=== PATIENT | female | born 1995 | race Caucasian/White ===

== ENCOUNTER 2022-04-14 21:15 | Emergency (ER) | payer OTHER ==
[2022-04-14 22:19] LABS: Absolute Neutrophil Ct (ANC) 3.17 x10^3/uL (1.4-6.9); Basophil (Absolute #) 0.02 x10^3/uL (0-0.4); Eosinophil % 0.2 % (0.00-5.0); Eosinophil (Absolute #) 0.01 x10^3/uL (0-0.5); Hematocrit 37.3 % (35-47); Hemoglobin 12.1 g/dL (12.0-16.0); Lymphocyte (Absolute #) 0.51 x10^3/uL (1.0-4.6); Lymphocytes % 12.5 % (24.0-44.0); Mean Corpuscular Hemoglobin 28.9 pg (26-32); Mean Corpuscular Hgb Concent. 32.4 g/dL (32-36); Mean Platelet Volume 10.8 fL (7.5-11.0); Monocytes % 7.4 % (0.0-12.0); Neutrophil % 77.7 % (36.0-66.0); Platelet Count 225 x10^3/uL (150-450); Red Blood Count 4.19 x10^6/uL (4.1-5.4); Red Cell Distribution Width 12.5 % (11.5-14.0); White Blood Count 4.1 x10^3/uL (4.0-10.5)
--- NOTE | 2022-04-14 22:26 | ERPHSYRPT ---
- History of Present Illness Source: patient Exam Limitations: other (Poor historian) Patient Subjective Stated Complaint: pt states "I started feeling dizzy richard morning and my heart rate was in the 150s at home." Triage Nursing Assessment: Pt presents to ED in wheelchair, pt alert and oriented x3, pt c/o dizziness, headache, tachycardia, low back pain since saturday morning, pt denies flu like symptoms or urinary symptoms, pt is afebrile, pt's heart rate is currently 104, skin pwd Physician History: 26 yo wf cc of tachycardia x 2 days/Global NO today/nausea/mild dyspnea/chest tightness. She denies cough/coryza/fever/diarrhea/dysuria/hematuria. Pt states that she has a h/o MGHA, but pain different. Timing/Duration: other (2 days) Activities at Onset: rest Quality: tightness Location: substernal Chest Pain Radiation: no radiation Severity of Pain-Max: moderate Severity of Pain-Current: moderate Modifying Factors: Improves With: nothing Nitro Today/Relief: no nitro taken today Aspirin Treatment Today: no aspirin today Associated Symptoms: nausea, No vomiting, No abdominal pain Allergies/Adverse Reactions: No Known Drug Allergies Allergy (Verified 04/14/22 21:26) Home Medications: Escitalopram Oxalate [Lexapro] 30 mg PO DAILY 04/14/22 [History] Hx Tetanus, Diphtheria Vaccination/Date Given: Yes Hx Influenza Vaccination/Date Given: No Hx Pneumococcal Vaccination/Date Given: No Immunizations Up to Date: Yes Travel Risk - International Travel Have you traveled outside of the country in past 3 weeks: No - Coronavirus Screening Are you exhibiting any of the following symptoms?: No Close contact with a COVID-19 positive Pt in past 14-21 Days: No - Vaccine Status Have you recieved a Covid-19 vaccination: Yes 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 - Vaccination Dates Date of 2cond Vaccination (if applicable): 2020 - Review of Systems Constitutional: No Symptoms Eyes: No Symptoms Ears, Nose, & Throat: No Symptoms Respiratory: No Symptoms Cardiac: No Symptoms, Chest Pain Abdominal/Gastrointestinal: No Symptoms, Nausea Genitourinary Symptoms: No Symptoms Musculoskeletal: No Symptoms Skin: No Symptoms Neurological: No Symptoms, Headache Psychological: No Symptoms Endocrine: No Symptoms Hematologic/Lymphatic: No Symptoms Immunological/Allergic: No Symptoms - Past Medical History Pertinent Past Medical History: Yes Neurological History: Migraines ENT History: No Pertinent History Cardiac History: No Pertinent History Respiratory History: No Pertinent History Endocrine Medical History: Diabetes Type II Musculoskeletal History: No Pertinent History GI Medical History: No Pertinent History History: No Pertinent History Psycho-Social History: Anxiety, Depression Female Reproductive Disorders: No Pertinent History - Past Surgical History Past Surgical History: Yes Neuro Surgical History: No Pertinent History Cardiac: No Pertinent History Respiratory: No Pertinent History Gastrointestinal: No Pertinent History Genitourinary: No Pertinent History Female Surgical History: Hysterectomy Other Surgical History: nasal surgery - Social History Smoking Status: Never smoker Exposure to second hand smoke: No Drug Use: none Patient Lives Alone: No Significant Family History: no pertinent family hx - Female History Hx Last Menstrual Period: hysterectomy Hx Now: No - Nursing Vital Signs Nursing Vital Signs: Initial Vital Signs Temperature 98.7 F 04/14/22 21:28 Pulse Rate 112 H 04/14/22 21:28 Respiratory Rate 21 04/14/22 21:28 Blood Pressure 116/75 04/14/22 21:28 O2 Sat by Pulse Oximetry 98 04/14/22 21:28 Pain Scale Pain Intensity 7 tachy - Physical Exam General Appearance: no apparent distress Eye Exam: PERRL/EOMI, eyes nml inspection Ears, Nose, Throat Exam: normal ENT inspection, TMs normal, pharynx normal, moist mucous membranes Neck Exam: normal inspection, non-tender, supple, full range of motion, No meningismus, No mass, No Brudzinski, No Kernig's, No carotid bruit Respiratory Exam: normal breath sounds, lungs clear, airway intact Cardiovascular Exam: tachycardia, capillary refill <2 sec, No murmur Gastrointestinal/Abdomen Exam: soft, normal bowel sounds, No tenderness Back Exam: normal inspection, normal range of motion, No CVA tenderness, No vertebral tenderness Extremity Exam: normal inspection, normal range of motion Neurologic Exam: alert, oriented x 3, cooperative, package handler II-XII nml as tested, normal mood/affect, nml cerebellar function, nml station & gait, sensation nml, No motor deficits, No sensory deficit Skin Exam: normal color, warm, dry Lymphatic Exam: No adenopathy SpO2 Interpretation: normal SpO2: 98 O2 Delivery: Room Air - Course Nursing assessment & vital signs reviewed: Yes EKG Interpreted by Me: RATE (Sinus tach/[id number]/Normal QT-QTc/Low voltage/No acute ST changes) - CT Exams Chest CT Interpretation: Tele-radiologist Report (CTA chest neg for PE/AD) Ordered Tests: Active Orders 24 hr Category Date Time Status EKG-ER Only STAT Care 04/14/22 21:49 Active IV Insertion STAT Care 04/14/22 23:24 Active CHEST WITH CONTRAST [CT] Stat Exams 04/15/22 00:12 Taken HEAD WITHOUT CONTRAST [CT] Stat Exams 04/14/22 21:51 Taken CBC W DIFF Stat Lab 04/14/22 22:15 Completed CMP Stat Lab 04/14/22 22:15 Completed D-DIMER QUANTITATIVE Stat Lab 04/14/22 22:00 Completed PROTIME WITH INR Stat Lab 04/14/22 22:15 Completed PTT Stat Lab 04/14/22 22:15 Completed TROPONIN Q3H Lab 04/14/22 22:15 Completed TROPONIN Q3H Lab 04/15/22 00:12 Completed TROPONIN Q3H Lab 04/15/22 04:00 Ordered TROPONIN Q3H Lab 04/15/22 07:00 Ordered TROPONIN Q3H Lab 04/15/22 10:00 Ordered UA W/RFX CULTURE Stat Lab 04/14/22 22:31 Completed Urine Triage Profile Stat Lab 04/14/22 22:31 Completed Medication Summary Discontinued Medications Generic Name Dose Route Start Last Admin Trade Name Rashid PRN Reason Stop Dose Admin Sodium Chloride 1,000 mls @ 999 mls/hr 04/14/22 23:06 04/15/22 00:14 Sodium Chloride 0.9% 1000 Ml IV 04/15/22 00:06 Infused .Q1H1M STA Infusion Sodium Chloride Confirm 04/14/22 23:08 Sodium Chloride 0.9% 1000 Ml Administered 04/14/22 23:09 Dose 1,000 mls @ ud .ROUTE .STK-MED ONE Ketorolac Tromethamine 15 mg 04/14/22 23:06 04/14/22 23:10 Ketorolac Tromethamine 30 Mg/Ml Inj IV 04/14/22 23:07 15 mg STAT ONE Administration Ketorolac Tromethamine Confirm 04/14/22 23:08 Ketorolac Tromethamine 30 Mg/Ml Inj Administered 04/14/22 23:09 Dose 30 mg .ROUTE .STK-MED ONE Lab/Rad Data: Laboratory Result Diagrams 04/14/22 22:15 04/14/22 22:15 Laboratory Results 04/15/22 04/14/22 04/14/22 Range/Units 00:12 22:32 22:31 WBC (4.0-10.5) x10^3/uL RBC (4.1-5.4) x10^6/uL Hgb (12.0-16.0) g/dL Hct (35-47) % MCV (78-100) fL MCH (26-32) pg MCHC (32-36) g/dL RDW (11.5-14.0) % Plt Count (150-450) x10^3/uL MPV (7.5-11.0) fL Gran % (36.0-66.0) % Immature Gran % (Auto) (0.00-0.4) % Nucleat RBC Rel Count (0.00-0.1) % Eos # (Auto) (0-0.5) x10^3/uL Immature Gran # (Auto) (0.00-0.03) x10^3u/L Absolute Lymphs (auto) (1.0-4.6) x10^3/uL Absolute Monos (auto) (0.0-1.3) x10^3/uL Absolute Nucleated RBC (0.00-0.01) x10^3u/L Lymphocytes % (24.0-44.0) % Monocytes % (0.0-12.0) % Eosinophils % (0.00-5.0) % Basophils % (0.0-0.4) % Absolute Granulocytes (1.4-6.9) x10^3/uL Basophils # (0-0.4) x10^3/uL PT (9.4-12.5) SECONDS INR (0.8-3.0) APTT (25.1-36.5) SECONDS D-Dimer (0.0-0.50) mg/L Sodium (137-145) mmol/L Potassium (3.5-5.1) mmol/L Chloride (98-107) mmol/L Carbon Dioxide (22-30) mmol/L Anion Gap (5-15) MEQ/L BUN (7-17) mg/dL Creatinine (0.52-1.04) mg/dL Estimated GFR ML/MIN Glucose (74-106) mg/dL Calcium (8.4-10.2) mg/dL Total Bilirubin (0.2-1.3) mg/dL AST (14-36) U/L ALT (0-35) U/L Alkaline Phosphatase (38-126) U/L Troponin I < 0.012 (0.000-0.034) ng/mL Serum Total Protein (6.3-8.2) g/dL Albumin (3.5-5.0) g/dL Urinalys Dipstick Clnc MAIN LAB Urine Color YELLOW (YELLOW) Urine Appearance CLEAR (CLEAR) Urine pH 7.0 (5-6) Ur Specific [place] 1.020 (1.005-1.025) POC Urine Protein Conf NEGATIVE (Negative) Urine Ketones TRACE (NEGATIVE) Urine Nitrite NEGATIVE (NEGATIVE) Urine Bilirubin NEGATIVE (NEGATIVE) Urine Urobilinogen 1 (0-1) mg/dL Urine Leukocytes NEGATIVE (NEGATIVE) Urine WBC (Auto) 0-2 (0-5) /HPF Urine RBC (Auto) NONE SEEN (0-2) /HPF U Epithel Cells (Auto) RARE (FEW) /HPF Urine Bacteria (Auto) NONE SEEN (NEGATIVE) /HPF Urine RBC NEGATIVE (0-5) Quintin/ul Urine Mucus (Auto) SLIGHT (NEGATIVE) /HPF Ur Culture Indicated? NO Urine Glucose >=1000 (NEGATIVE) mg/dL Urine Opiates Level (NEGATIVE) Ur Methadone (NEGATIVE) Urine Barbiturates (NEGATIVE) Ur Phencyclidine (PCP) (NEGATIVE) Urine Amphetamine (NEGATIVE) U Benzodiazepine Level (NEGATIVE) Urine Cocaine (NEGATIVE) Urine Marijuana (THC) (NEGATIVE) Influenza Type A Ag NEGATIVE (NEGATIVE) Influenza Type B Ag NEGATIVE (NEGATIVE) RSV (PCR) NEGATIVE (Negative) SARS-CoV-2 (PCR) NEGATIVE (NEGATIVE) 04/14/22 04/14/22 04/14/22 Range/Units 22:31 22:15 22:15 WBC (4.0-10.5) x10^3/uL RBC (4.1-5.4) x10^6/uL Hgb (12.0-16.0) g/dL Hct (35-47) % MCV (78-100) fL MCH (26-32) pg MCHC (32-36) g/dL RDW (11.5-14.0) % Plt Count (150-450) x10^3/uL MPV (7.5-11.0) fL Gran % (36.0-66.0) % Immature Gran % (Auto) (0.00-0.4) % Nucleat RBC Rel Count (0.00-0.1) % Eos # (Auto) (0-0.5) x10^3/uL Immature Gran # (Auto) (0.00-0.03) x10^3u/L Absolute Lymphs (auto) (1.0-4.6) x10^3/uL Absolute Monos (auto) (0.0-1.3) x10^3/uL Absolute Nucleated RBC (0.00-0.01) x10^3u/L Lymphocytes % (24.0-44.0) % Monocytes % (0.0-12.0) % Eosinophils % (0.00-5.0) % Basophils % (0.0-0.4) % Absolute Granulocytes (1.4-6.9) x10^3/uL Basophils # (0-0.4) x10^3/uL PT 10.4 (9.4-12.5) SECONDS INR 0.98 (0.8-3.0) APTT 26.5 (25.1-36.5) SECONDS D-Dimer (0.0-0.50) mg/L Sodium (137-145) mmol/L Potassium (3.5-5.1) mmol/L Chloride (98-107) mmol/L Carbon Dioxide (22-30) mmol/L Anion Gap (5-15) MEQ/L BUN (7-17) mg/dL Creatinine (0.52-1.04) mg/dL Estimated GFR ML/MIN Glucose (74-106) mg/dL Calcium (8.4-10.2) mg/dL Total Bilirubin (0.2-1.3) mg/dL AST (14-36) U/L ALT (0-35) U/L Alkaline Phosphatase (38-126) U/L Troponin I < 0.012 (0.000-0.034) ng/mL Serum Total Protein (6.3-8.2) g/dL Albumin (3.5-5.0) g/dL Urinalys Dipstick Clnc Urine Color (YELLOW) Urine Appearance (CLEAR) Urine pH (5-6) Ur Specific [place] (1.005-1.025) POC Urine Protein Conf (Negative) Urine Ketones (NEGATIVE) Urine Nitrite (NEGATIVE) Urine Bilirubin (NEGATIVE) Urine Urobilinogen (0-1) mg/dL Urine Leukocytes (NEGATIVE) Urine WBC (Auto) (0-5) /HPF Urine RBC (Auto) (0-2) /HPF U Epithel Cells (Auto) (FEW) /HPF Urine Bacteria (Auto) (NEGATIVE) /HPF Urine RBC (0-5) Quintin/ul Urine Mucus (Auto) (NEGATIVE) /HPF Ur Culture Indicated? Urine Glucose (NEGATIVE) mg/dL Urine Opiates Level NEGATIVE (NEGATIVE) Ur Methadone NEGATIVE (NEGATIVE) Urine Barbiturates NEGATIVE (NEGATIVE) Ur Phencyclidine (PCP) NEGATIVE (NEGATIVE) Urine Amphetamine NEGATIVE (NEGATIVE) U Benzodiazepine Level NEGATIVE (NEGATIVE) Urine Cocaine NEGATIVE (NEGATIVE) Urine Marijuana (THC) NEGATIVE (NEGATIVE) Influenza Type A Ag (NEGATIVE) Influenza Type B Ag (NEGATIVE) RSV (PCR) (Negative) SARS-CoV-2 (PCR) (NEGATIVE) 04/14/22 04/14/22 04/14/22 Range/Units 22:15 22:15 22:00 WBC 4.1 (4.0-10.5) x10^3/uL RBC 4.19 (4.1-5.4) x10^6/uL Hgb 12.1 (12.0-16.0) g/dL Hct 37.3 (35-47) % MCV 89.0 (78-100) fL MCH 28.9 (26-32) pg MCHC 32.4 (32-36) g/dL RDW 12.5 (11.5-14.0) % Plt Count 225 (150-450) x10^3/uL MPV 10.8 (7.5-11.0) fL Gran % 77.7 H (36.0-66.0) % Immature Gran % (Auto) 1.7 H (0.00-0.4) % Nucleat RBC Rel Count 0.0 (0.00-0.1) % Eos # (Auto) 0.01 (0-0.5) x10^3/uL Immature Gran # (Auto) 0.07 H (0.00-0.03) x10^3u/L Absolute Lymphs (auto) 0.51 L (1.0-4.6) x10^3/uL Absolute Monos (auto) 0.30 (0.0-1.3) x10^3/uL Absolute Nucleated RBC 0.00 (0.00-0.01) x10^3u/L Lymphocytes % 12.5 L (24.0-44.0) % Monocytes % 7.4 (0.0-12.0) % Eosinophils % 0.2 (0.00-5.0) % Basophils % 0.5 (0.0-0.4) % Absolute Granulocytes 3.17 (1.4-6.9) x10^3/uL Basophils # 0.02 (0-0.4) x10^3/uL PT (9.4-12.5) SECONDS INR (0.8-3.0) APTT (25.1-36.5) SECONDS D-Dimer 1.01 H* (0.0-0.50) mg/L Sodium 135 L (137-145) mmol/L Potassium 3.7 (3.5-5.1) mmol/L Chloride 102 (98-107) mmol/L Carbon Dioxide 23 (22-30) mmol/L Anion Gap 13.3 (5-15) MEQ/L BUN 10 (7-17) mg/dL Creatinine 0.66 (0.52-1.04) mg/dL Estimated GFR > 60.0 ML/MIN Glucose 313 H (74-106) mg/dL Calcium 9.0 (8.4-10.2) mg/dL Total Bilirubin 0.30 (0.2-1.3) mg/dL AST 30 (14-36) U/L ALT 23 (0-35) U/L Alkaline Phosphatase 85 (38-126) U/L Troponin I (0.000-0.034) ng/mL Serum Total Protein 6.5 (6.3-8.2) g/dL Albumin 3.7 (3.5-5.0) g/dL Urinalys Dipstick Clnc Urine Color (YELLOW) Urine Appearance (CLEAR) Urine pH (5-6) Ur Specific [place] (1.005-1.025) POC Urine Protein Conf (Negative) Urine Ketones (NEGATIVE) Urine Nitrite (NEGATIVE) Urine Bilirubin (NEGATIVE) Urine Urobilinogen (0-1) mg/dL Urine Leukocytes (NEGATIVE) Urine WBC (Auto) (0-5) /HPF Urine RBC (Auto) (0-2) /HPF U Epithel Cells (Auto) (FEW) /HPF Urine Bacteria (Auto) (NEGATIVE) /HPF Urine RBC (0-5) Quintin/ul Urine Mucus (Auto) (NEGATIVE) /HPF Ur Culture Indicated? Urine Glucose (NEGATIVE) mg/dL Urine Opiates Level (NEGATIVE) Ur Methadone (NEGATIVE) Urine Barbiturates (NEGATIVE) Ur Phencyclidine (PCP) (NEGATIVE) Urine Amphetamine (NEGATIVE) U Benzodiazepine Level (NEGATIVE) Urine Cocaine (NEGATIVE) Urine Marijuana (THC) (NEGATIVE) Influenza Type A Ag (NEGATIVE) Influenza Type B Ag (NEGATIVE) RSV (PCR) (Negative) SARS-CoV-2 (PCR) (NEGATIVE) - Progress Progress: improved Progress Note: 04/15/22 01:58 15mg IV Toradol w decrease in pain 04/15/22 02:01 Pt's tachycardia resolved after Toradol. Counseled pt/family regarding: lab results, diagnosis, need for follow-up, rad results - Departure Departure Disposition: Home Clinical Impression: Headache, Hyperglycemia Condition: Stable Critical Care Time: No Referrals: Sidra Rogers MD [Primary Care Provider] - Follow up/PCP as directed Instructions: Headache, Adult (DC), Tachycardia (DC) Additional Instructions: Follow up with your family MD on Saturday Return to ER for increasing pain/focal weakness/Temperature greater than 100.5
[2022-04-14 22:33] LABS: ALBUMIN 3.7 g/dL (3.5-5.0); ALKALINE PHOSPHATASE 85 U/L (38-126); ANION GAP 13.3 MEQ/L (5-15); BLOOD UREA NITROGEN 10 mg/dL (7-17); CHLORIDE 102 mmol/L (98-107); Carbon Dioxide 23 mmol/L (22-30); Creatinine 1 0.66 mg/dL (0.52-1.04); EST GLOMERULAR FILTRATION RATE > 60.0 ML/MIN; Glucose 313 mg/dL (74-106); Potassium 3.7 mmol/L (3.5-5.1); SGOT/AST 30 U/L (14-36); SGPT/ALT 23 U/L (0-35); SODIUM 135 mmol/L (137-145); Total Protein 6.5 g/dL (6.3-8.2)
[2022-04-14 22:34] LABS: INR 0.98 (0.8-3.0); PROTIME 10.4 SECONDS (9.4-12.5); PTT 26.5 SECONDS (25.1-36.5)
[2022-04-14 22:48] LABS: Epithelial Cells RARE /HPF (FEW); Mucus SLIGHT /HPF (NEGATIVE); WBC 0-2 /HPF (0-5)
[2022-04-14 22:49] LABS: Appearance CLEAR (CLEAR); Bacteria NONE SEEN /HPF (NEGATIVE); Bilirubin NEGATIVE (NEGATIVE); Dipstick done @ ? MAIN LAB; Glucose >=1000 mg/dL (NEGATIVE); Ketones TRACE (NEGATIVE); Nitrite NEGATIVE (NEGATIVE); Protein,Urine Dip NEGATIVE (Negative); RBC NEGATIVE Ery/ul (0-5); RBC NONE SEEN /HPF (0-2); Urine Cultured Indicated? NO; Urobilinogen 1 mg/dL (0-1)
[2022-04-14 22:55] LABS: Amphetamine,Urine NEGATIVE (NEGATIVE); Barbiturate,Urine NEGATIVE (NEGATIVE); Benzodiazepine,Urine NEGATIVE (NEGATIVE); Cocaine,Urine NEGATIVE (NEGATIVE); Methadone,Urine NEGATIVE (NEGATIVE); Opiate,Urine NEGATIVE (NEGATIVE); PCP,Urine NEGATIVE (NEGATIVE); THC,Urine NEGATIVE (NEGATIVE)
[2022-04-14] MEDS ORDERED: Sodium Chloride 0.9% 1000 ML 1,000 ML IV STA (23:06)
[2022-04-14] MEDS ORDERED: TORAdol 30 mg Injection IV ONE (23:06)
[2022-04-14] MEDS ORDERED: Sodium Chloride 0.9% 1000 ML 1,000 ML ONE (23:08)
[2022-04-14] MEDS ORDERED: TORAdol 30 mg Injection ONE (23:08)
[2022-04-14 23:27] LABS: INFLUENZA A NEGATIVE (NEGATIVE); INFLUENZA B NEGATIVE (NEGATIVE); RESPIRATORY SYNCTIAL VIRUS NEGATIVE (Negative); SARS-CoV-2 Xpert Express NEGATIVE (NEGATIVE)
[2022-04-15 00:18] VITALS: O2SAT 98
[2022-04-15 02:21] VITALS: BP 102/58; PULSE 88
--- NOTE | 2022-04-15 07:40 | XRAY ---
Indication: Dizziness, tachycardia, headache, neck/back pain, and numbness in both legs. Multiple contiguous axial images obtained through the head without contrast. Comparison: None Normal appearing brain parenchyma, ventricles, and bony calvarium. 2.5 cm right maxillary sinus polyp/retention cyst. Remaining paranasal sinuses and mastoid air cells are clear. Impression: Right maxillary sinus polyp/retention cyst. Remaining CT head without contrast exam is normal. Comment: Preliminary interpretation made by [facility]. No critical discrepancy.
--- NOTE | 2022-04-15 07:44 | XRAY ---
Indication: Nausea, dizziness, chest pain, headache, neck/back pain, elevated d-dimer, and tachycardia. Multiple contiguous axial images obtained through the chest using 100 cc Isovue 370 contrast and PE protocol. Comparison: None Good opacification of the pulmonary arteries to include the lobar and segmental branches. No pulmonary embolus. Heart is not enlarged. Aorta is normal in course and caliber. No pathologic mediastinal/hilar lymphadenopathy. Lungs inflated with minimal left posterior costophrenic angle fibrosis/scarring. No suspicious pulmonary mass, infiltrate, or effusion. Bony thorax intact with minimal degenerative changes throughout the spine. Limited upper abdomen demonstrates mild diffuse fatty liver and 14.2 cm splenomegaly. Impression: 1. Negative pulmonary embolus. No acute cardiopulmonary abnormalities. 2. Incidental fatty liver and splenomegaly. Comment: Preliminary interpretation made by [facility]. No critical discrepancy.
== END 2022-04-15 02:27 | disposition home or self-care (01) ==
LOC: ED 21:15
DX: R51.9 Headache, unspecified (principal); E11.65 Type 2 diabetes mellitus with hyperglycemia; R00.0 Tachycardia, unspecified; R11.0 Nausea; R06.00 Dyspnea, unspecified; Z79.899 Other long term (current) drug therapy
CPT/HCPCS: 0241U; 36415; 70450; 71260; 80053; 80307; 81015; 84484; 85025; 85379; 85610; 85730; 93005; 96374; 99284; J1885